=== PATIENT | female | born 1995 | race Two or more races ===

== ENCOUNTER 2019-11-11 15:06 | Emergency (ER) | payer SELFPAY ==
[~2019-11-11] VITALS: Ht 165.1 cm; Wt 72.3 kg
[2019-11-11 15:22] VITALS: BP 111/79
== END 2019-11-11 16:51 | disposition home or self-care (01) ==
LOC: ED 15:35
DX: J20.8 Acute bronchitis due to other specified organisms (principal)
CPT/HCPCS: 99283